=== PATIENT | male | born 1970 | race Caucasian/White ===

== ENCOUNTER 2021-11-17 13:28 | Emergency (ER) | payer OTHER, SELFPAY ==
[2021-11-17 13:44] VITALS: BP 143/114; PULSE 73; RESP 18; TEMP 36.6; O2SAT 97
--- NOTE | 2021-11-17 13:49 | ED.EXTPRO ---
HPI - Extremity Problem General Chief complaint: Extremity Problem,Nontraumatic Stated complaint: lt knee pain Time Seen by Provider: 11/17/21 13:49 Source: patient Mode of arrival: ambulatory Limitations: no limitations History of Present Illness HPI Narrative: 51-year-old male presents with complaint of left knee pain for several days. States that he has been in [place] for motorcycle rally and pain started on his way home. Is ambulatory with a limp. History of gout to great toes and also right knee. Last episode of gout was approximately 10 months ago. Patient lives in [place]. Stopped here on his way home. Has not taken any [id number] pain medications to treat his symptoms. Denies injury. All systems reviewed and negative except as noted above. Related Data Home Medications Medication Instructions Recorded Confirmed No Home Medications 11/17/21 11/17/21 Allergies Allergy/AdvReac Type Severity Reaction Status Date / Time No Known Allergies Allergy Verified 11/17/21 13:57 Review of Systems Review of Systems: CONSTITUTIONAL: Denies fever, chills, or sweats. EYES: Denies visual changes, redness, or discharge. ENT: Denies rhinorrhea, congestion, sore throat, or otalgia. CARDIOVASCULAR: Denies chest pain, palpitations, or edema. RESPIRATORY: Denies cough or dyspnea. GASTROINTESTINAL: Denies abdominal pain, nausea, vomiting, or diarrhea. GENITOURINARY: Denies dysuria or hematuria. SKIN: Denies rash or itching. MUSCULOSKELETAL: Reports pain and warmth to left knee with mild swelling. NEUROLOGIC: Denies headache, numbness, or weakness. PSYCHIATRIC: Denies anxiety or depression. All other systems reviewed are negative, except as documented in HPI. PMFSH Comments At time of signature, agree with nursing past medical, surgical, social and family history. There is no relevant family history pertinent to the presenting complaint. Exam Narrative: GENERAL: This is a well-nourished, well-developed patient, in no apparent distress. HEAD: normocephalic, atraumatic. EYES: PERRL. Sclera clear/white. Vision is grossly intact. EARS: External ears normal NOSE: External nose normal NECK: Neck supple, non-tender without lymphadenopathy, masses or thyromegaly. CARDIOVASCULAR: Regular rate and rhythm without murmurs, gallops, or rubs. RESPIRATORY: Clear to auscultation. Breath sounds equal bilaterally. No wheezes, rales, or rhonchi. SKIN: warm, Dry, intact with no suspicious lesions or rash, good texture and turgor. NEURO: awake, alert, and oriented to person, place and time. There were no obvious focal neurologic abnormalities. EXTREMITIES: Tenderness to anterior aspect left knee. Warmth on palpation. Pain with active and passive range of motion. Decreased range of motion due to pain. Mild swelling. Course Course Level of Care: Express Care Visit Vital Signs Vital signs: Vital Signs Temperature 36.6 C 11/17/21 13:44 Pulse Rate 73 11/17/21 13:44 Respiratory Rate 18 11/17/21 13:44 Blood Pressure 143/114 H 11/17/21 13:44 Pulse Oximetry 97 11/17/21 13:44 Oxygen Delivery Room Air 11/17/21 13:44 Temperature 36.6 C 11/17/21 13:44 Pulse Rate 73 11/17/21 13:44 Respiratory Rate 18 11/17/21 13:44 Blood Pressure 143/114 H 11/17/21 13:44 Pulse Oximetry 97 11/17/21 13:44 Oxygen Delivery Room Air 11/17/21 13:44 Reviewed MDM - Extremity (Nontraumatic) MDM Narrative Medical decision making narrative: Patient is aware of diagnosis, understands and agrees to treatment plan. Anticipatory guidance given. Patient agrees to follow-up as directed and is aware of reasons to seek care at the emergency department. Portions of this record may have been created with voice recognition software X-ray of knee was offered due to swelling but patient did not feel was necessary. Discharge Plan Discharge Clinical Impression: Gout Patient Disposition: Home, Self-Care Condition: Sta
[2021-11-17 14:05] VITALS: BP 140/92
[2021-11-17] MEDS: KETOROLAC (*BKC) 60 MG/2 ML VIAL IM (14:05)
== END 2021-11-17 14:09 | disposition home or self-care (01) ==
PROVIDERS: Emergency Provider Nurse Practitioner Family
DX: M10.9 Gout, unspecified (principal); M19.90 Unspecified osteoarthritis, unspecified site
CPT/HCPCS: 96372; 99213; G0463; J1885